=== PATIENT | male | born 1950 | race Caucasian/White ===

== ENCOUNTER → 2021-08-27 | Outpatient (CLI) | payer BC ==
[~2021-08-27] MED LIST: HYDR-3715 PO; JANU100T PO; METF10004 PO; PRAV40TA2 PO; RAMI1CAP26 PO
== END ==
LOC: M LABSMTC 10:26
PROVIDERS: ATTEND Family Medicine
DX: Z20.822 Contact with and (suspected) exposure to COVID-19 (principal)
CPT/HCPCS: C9803; U0003

== ENCOUNTER 2023-12-24 17:51 | Emergency (ER) | payer MEDICARE, BC ==
[~2023-12-24] VITALS: Ht 177.8 cm; Wt 85.9 kg
[2023-12-24 17:52] VITALS: BP 107/56; TEMP 97.1; O2SAT 98
[2023-12-24] MEDS: BOOSTRIX VACCINE (TETANUS/DIPHTH/ACEL. PERTUSSIS) 0.5ML SYR IM ONE (18:49)
[2023-12-24] MEDS: LIDOCAINE 2% MDV 20ML VIAL SC ONE (19:30)
[2023-12-24] MEDS: CEPHALEXIN 500 MG CAP PO ONE (19:51)
[2023-12-24] MEDS ORDERED: CEPH500C PO (20:12)
== END 2023-12-24 20:19 | disposition home or self-care (01) ==
LOC: M ED 17:51
DX: S62.502B Fracture of unspecified phalanx of left thumb, initial encounter for open fracture (principal); S61.012A Laceration without foreign body of left thumb without damage to nail, initial encounter; Y92.9 Unspecified place or not applicable; Y99.9 Unspecified external cause status; Y93.9 Activity, unspecified; I10 Essential (primary) hypertension; E11.9 Type 2 diabetes mellitus without complications; F10.10 Alcohol abuse, uncomplicated; Z23 Encounter for immunization; Z79.899 Other long term (current) drug therapy; Z79.84 Long term (current) use of oral hypoglycemic drugs

== ENCOUNTER 2024-10-22 08:01 | Observation (INO) | payer MEDICARE, BC ==
[~2024-10-22] VITALS: Ht 177.8 cm; Wt 85.7 kg
[~2024-10-22 08:01] MED LIST changes: +CEPH500C PO; +RAMI10CA64 PO; -RAMI1CAP26 PO
[2024-10-22] MEDS ORDERED: HYDR12.55 PO (08:27)
[2024-10-22] MEDS ORDERED: LATANOPROST (08:27)
[2024-10-22] MEDS ORDERED: AMLO1TAB24 PO (08:27)
[2024-10-22] MEDS ORDERED: MIRT1TAB PO (08:27)
[2024-10-22] MEDS ORDERED: JARD1TAB3 PO (08:27)
[2024-10-22] MEDS: dexAMETHasone 20MG/5ML VIAL IV ONE (09:25)
[2024-10-22] MEDS: IPRATROPIUM 0.5MG/ALBUTEROL 2.5MG INH SOL UD 3ML (DUONEB) NEB SCH ×4 (09:30→20:37)
[2024-10-22] MEDS ORDERED: XALA0.007 OU (10:15)
[2024-10-22] MEDS ORDERED: TRES1INJ2 SC (10:16)
[2024-10-22] MEDS ORDERED: HOME MED LIST COMPLETE! XX SCH (10:20)
[2024-10-22 12:26] VITALS: O2SAT 96
[2024-10-22] MEDS ORDERED: ISOVUE-370 76% 100ML VIAL As Ordered ONE (13:04)
[2024-10-22 13:05] LABS: BASO % 0.2 % (0.0-1.0); EOS # 0.1 10^3/uL (0.0-0.5); EOS % 0.9 % (0.0-3.0); HEMATOCRIT 46.4 % (42.0-52.0); LYMPH # 0.5 10^3/uL (1.5-5.0); LYMPH % 6.2 % (24.0-44.0); MEAN CORPUSCULAR HEMOGLOBIN 33.1 pg (27.0-33.0); MEAN CORPUSCULAR HGB CONC 34.5 g/dl (32.0-36.5); MEAN CORPUSCULAR VOLUME 96.1 fl (80.0-96.0); MONO # 0.1 10^3/uL (0.0-0.8); MONO % 1.1 % (2.0-8.0); NEUTROPHILS # 7.8 10^3/uL (1.5-8.5); NEUTROPHILS % 91.2 % (36.0-66.0); PLATELET COUNT, AUTOMATED 147 10^3/uL (150-450); RED BLOOD COUNT 4.83 10^6/uL (4.30-6.10); WHITE BLOOD COUNT 8.5 10^3/uL (4.0-10.0)
[2024-10-22] MEDS ORDERED: GLUCOSE 4 GM CHEW PO PRN (15:50)
[2024-10-22] MEDS ORDERED: IPRATROPIUM 0.5MG/ALBUTEROL 2.5MG INH SOL UD 3ML (DUONEB) NEB PRN (15:50)
[2024-10-22] MEDS ORDERED: DEXTROSE 50% 50ML SYRINGE IV PRN (15:50)
[2024-10-22] MEDS ORDERED: GLUCAGON INJ 1MG VIAL SC PRN (15:50)
[2024-10-22 16:59] LABS: C REACTIVE PROTEIN QUANTITATIV < 0.50 MG/DL (<1.0)
[2024-10-22] MEDS: INSULIN LISPRO (NovoLOG) PER UNIT SC SCH ×2 (18:59→21:23)
[2024-10-22] MEDS: PRAVASTATIN 20 MG TAB PO SCH (21:16)
[2024-10-22] MEDS: MIRTAZAPINE 7.5MG PER 1/2 TABLET PO SCH (21:17)
[2024-10-22] MEDS: LATANOPROST 0.005% OPHTH SOLN 2.5 ML OU SCH (21:56)
[2024-10-22] MEDS: amLODIPine 5 MG TAB PO SCH (21:56)
[2024-10-23 07:16] LABS: HEMOGLOBIN 14.7 g/dl (13.5-17.5); MEAN CORPUSCULAR HEMOGLOBIN 32.2 pg (27.0-33.0); MEAN CORPUSCULAR HGB CONC 34.2 g/dl (32.0-36.5); MEAN CORPUSCULAR VOLUME 94.1 fl (80.0-96.0); PLATELET COUNT, AUTOMATED 169 10^3/uL (150-450); RED BLOOD COUNT 4.57 10^6/uL (4.30-6.10); WHITE BLOOD COUNT 13.3 10^3/uL (4.0-10.0)
[2024-10-23] MEDS: LEVEMIR (INSULIN DETEMIR) 1 UNITS/0.01ML SC SCH ×2 (07:33→08:57)
[2024-10-23 07:39] LABS: BLOOD UREA NITROGEN 37 MG/DL (9-23); CALCIUM LEVEL 9.7 MG/DL (8.3-10.6); CARBON DIOXIDE LEVEL 25 MMOL/L (20-31); CHLORIDE LEVEL 103 MMOL/L (98-107); CREATININE FOR GFR 1.24 MG/DL (0.70-1.30); GLOMERULAR FILTRATION RATE > 60.0 (>42); GLUCOSE, FASTING 198 MG/DL (74-106); POTASSIUM SERUM 4.1 MMOL/L (3.5-5.1); SODIUM LEVEL 137 MMOL/L (136-145)
[2024-10-23] MEDS: predniSONE 20 MG TAB PO SCH (07:52)
[2024-10-23] MEDS: ENOXAPARIN 40MG/0.4ML SYRINGE (J1650 PER 10MG) SC SCH (07:52)
[2024-10-23 07:53] VITALS: BP 151/81
[2024-10-23] MEDS: ramipriL 5 MG CAP PO SCH (07:53)
[2024-10-23] MEDS ORDERED: amLODIPine 5 MG TAB PO SCH (09:00)
[2024-10-23] MEDS ORDERED: PRED50TA PO (09:48)
[2024-10-23] MEDS ORDERED: ADVA115A INH (09:48)
[2024-10-23] MEDS ORDERED: IPRAINH INH (09:48)
[2024-10-23 11:21] VITALS: BP 159/71; TEMP 97.9; O2SAT 97
== END 2024-10-23 11:33 | disposition home or self-care (01) ==
LOC: M ED 08:01 → M ED INP 15:50
PROVIDERS: ADMIT Internal Medicine; ATTEND Internal Medicine
DX: R06.00 Dyspnea, unspecified (principal); R00.0 Tachycardia, unspecified; R05.8 Other specified cough; I45.10 Unspecified right bundle-branch block; E11.9 Type 2 diabetes mellitus without complications; I10 Essential (primary) hypertension; E78.5 Hyperlipidemia, unspecified; G47.00 Insomnia, unspecified; H40.9 Unspecified glaucoma; Z79.899 Other long term (current) drug therapy; Z79.4 Long term (current) use of insulin; Z79.84 Long term (current) use of oral hypoglycemic drugs
CPT/HCPCS: 36415; 71045; 71275; 80047; 80048; 83735; 83880; 84145; 84484; 85025; 85027; 86140; 87486; 87581; 87633; 87798; 93005; 93306; 94640; 96372; 96374; 99285; G0378; J1100; J1650; J1815; J7512; Q9967